=== PATIENT | female | born 1975 | race Caucasian/White ===

== ENCOUNTER 2017-06-24 09:09 | Observation (INO) | payer OTHER ==
[~2017-06-24] VITALS: Ht 172.7 cm; Wt 81.3 kg
[~2017-06-24 09:09] MED LIST: ADDE15TA PO; GELFOAM SIZE 100 ONE; GENTAMICIN SULFATE 80 MG/2 ML VIAL ONE; HYDR-3366 PO; L-MECAP2 PO; LAMI200T PO; LORA-475 PO; PROP10TA6 PO; THROMBIN (TOPICAL) 5,000 UNIT VIAL ONE; TRAZ1TAB45 PO; ceFAZolin 2 GM PREMIX 50 ML ONE; methylPREDNISolone ACETATE 40 MG/ML VIAL ONE
[2017-06-24] MEDS ORDERED: VANCOMYCIN HCL 1000 MG ON-CALL/NS 250 ML IV SCH ×2 (10:00)
[2017-06-24] MEDS ORDERED: SODIUM CHLOR 0.9% 1000 ML INJ 1,000 ML IV SCH (10:00)
[2017-06-24] MEDS ORDERED: METOPROLOL TARTRATE 25 MG TAB ONE (10:04)
[2017-06-24] MEDS ORDERED: LACTATED RINGER'S 1000 ML IV PRN (10:15)
[2017-06-24] MEDS ORDERED: CHLORHEXIDINE GLUCONATE 2 % 1 PACK (2 CLOTHS) TOPICAL PRN (10:15)
[2017-06-24] MEDS ORDERED: POVIDONE IODINE 5% (ANTISEPSIS KIT) 4 APPLICATIONS EACH NARE PRN (10:15)
[2017-06-24] MEDS ORDERED: INSULIN HUMAN REGULAR 1,000 UNITS/10 ML VIAL SQ PRN (10:15)
[2017-06-24] MEDS ORDERED: SODIUM CHLORID 0.9% 500 ML IV PRN (10:15)
[2017-06-24] MEDS ORDERED: METOPROLOL TARTRATE 25 MG TAB PO PRN (10:15)
[2017-06-24] MEDS ORDERED: SUMA6INJ17 SQ (10:31)
[2017-06-24] MEDS ORDERED: APREPITANT 40 MG CAP ONE (11:33)
[2017-06-24] MEDS ORDERED: MIDAZOLAM HCL 2 MG/2 ML VIAL ONE (11:38)
[2017-06-24] MEDS ORDERED: FAMOTIDINE 20 MG/2 ML VIAL ONE (11:38)
[2017-06-24] MEDS ORDERED: KETAMINE HCL 500 MG/5 ML VIAL ONE (13:07)
[2017-06-24] MEDS ORDERED: HYDROmorphone HCL PF 2 MG/ML VIAL ONE (13:07)
[2017-06-24] MEDS ORDERED: ACETAMINOPHEN 1000 MG/100 ML 0 ML IV ONE (13:07)
[2017-06-24] MEDS ORDERED: ACETAMINOPHEN 1000 MG/100 ML 100 ML IV ONE (13:23)
[2017-06-24] MEDS ORDERED: PHENYLEPH/NS 1000 MCG/10 ML SYR IV ONE (13:43)
[2017-06-24] MEDS ORDERED: GLYCOPYRROLATE 0.2 MG/ML VIAL IV ONE (13:43)
[2017-06-24] MEDS ORDERED: DEXAMETHASONE SOD PHOS 4 MG/ML VIAL IV ONE (13:43)
[2017-06-24] MEDS ORDERED: ONDANSETRON HCL 4 MG/2 ML VIAL IV PUSH ONE (13:43)
[2017-06-24] MEDS ORDERED: ROCURONIUM INJ 50 MG/5 ML SYRINGE IV PUSH ONE (13:43)
[2017-06-24] MEDS ORDERED: LIDOCAINE HCL 1% PF 5 ML AMPULE OTHER ONE (13:43)
[2017-06-24] MEDS ORDERED: NEOSTIGMINE 3 MG/3 ML SYR IV ONE (13:43)
[2017-06-24] MEDS ORDERED: KETOROLAC TROMETHAMINE 60 MG/2 ML (IM) VIAL IM ONE (13:43)
[2017-06-24] MEDS ORDERED: PROPOFOL 200 MG/20 ML AMP IV ONE (13:43)
[2017-06-24] MEDS ORDERED: MIDAZOLAM HCL 2 MG/2 ML VIAL IV ONE (13:43)
[2017-06-24] MEDS ORDERED: LACTATED RINGER'S 1000 ML INJ 1,000 ML IV ONE (13:43)
[2017-06-24] MEDS ORDERED: DO NOT ADM ANY ANTICOAGULANT DRUGS PRN (15:53)
[2017-06-24] MEDS ORDERED: *diphenhydrAMINE HCL 50 MG/ML VIAL PERIprocedural Use ONLY ONE (15:53)
[2017-06-24] MEDS ORDERED: *PROMETHAZINE 25 MG/ML VIAL PERIprocedural use ONLY ONE (16:01)
[2017-06-24] MEDS ORDERED: *MEPERIDINE 25 MG INJ VIAL PERIprocedural Use ONLY ONE (16:01)
--- NOTE | 2017-06-24 16:10 | RADRPT ---
EXAM DATE/TIME: 06/24/2017 14:13 [place] COMPARISON: FLUOROSCOPY PORTABLE UP TO 1HR, June 24, 2017, 0:00. INDICATIONS : L5-S1 Laminectomy. MEDICAL HISTORY : Hypertension. Osteoarthritis. SURGICAL HISTORY : Hysterectomy. section. ENCOUNTER: Initial ACUITY: 1 day PAIN SCORE: Non-responsive. LOCATION: Lumbar spine. FINDINGS: Single lateral view of the lumbar spine demonstrate the operative field to be at the L5-S1 level. CONCLUSION: 1. Operative field at the L5/S1 level. Moe Fiore MD on June 24, 2017 at 16:08 Board Certified Radiologist. This report was verified electronically.
[2017-06-24] MEDS ORDERED: HYDR-3366 PO (16:14)
[2017-06-24] MEDS ORDERED: HYDROmorphone HCL PF 1 MG/ML VIAL IV PUSH PRN (16:15)
[2017-06-24] MEDS ORDERED: ACETAMINOPHEN/HYDROcodone 325 MG/10 MG TAB PO PRN ×2 (16:15)
[2017-06-24] MEDS ORDERED: ACETAMINOPHEN 325 MG TAB PO PRN (16:15)
[2017-06-24] MEDS ORDERED: SODIUM CHLORIDE 0.9% FLUSH 5 ML FLUSH IVF PRN (16:15)
[2017-06-24] MEDS ORDERED: LORazepam 2 MG TAB PO PRN (16:15)
--- NOTE | 2017-06-24 16:20 | PD.OP ---
Operative Report Date of Surgery: Jun 24, 2017 Preoperative Diagnosis: L5-S1 disk herniation Postoperative Diagnosis: L5-S1 disk herniation Procedure: Right L5-S1 hemilaminectomy and microdiscectomy Anesthesia: general Surgeon: Edouard Wagner Deliverer Pharmacy(s): Mihaela Fowler Operation and Findings: INDICATIONS FOR THE SURGICAL PROCEDURE Ms Watson is a 41 year-old female who presented with intractable mechanical back pain and clinical evidence of right S1 lower extremity radiculopathy. She was found to have a disk herniation and extrusion significant stenosis with significant mass effect on the neural structures which correlated with the clinical symptoms. She failed maximum nonsurgical management including multiple modalities of conservative treatment as well as pain management interventions by an interventional pain specialist. A surgical decompression were indicated as a last resort. The [id number] details of the procedure, indications, alternatives, risks and potential complications were fully discussed with the patient. The patient fully understood. All the questions were answered. No guarantees were given. The patient voiced requesting the procedure and signed informed consents. He was offered the alternative of delaying the procedure and continuing with nonsurgical management. DETAILS OF THE SURGICAL PROCEDURE After the induction of general anesthesia, endotracheal intubation was performed. A Short catheter, bilateral JOSSELINE hose and sequential compression devices were placed and kept throughout the procedure. The patient was positioned prone on a Mohinder table over a Anshu frame. All pressure points were carefully padded with eggcrate mattress. The eyes were tapped shut after ointment was applied by the anesthesiologist to prevent corneal abrasion. A Katarina hugger was placed over the exposed lower body to maintain control of the core body temperature. The lower lumbar region was prepped and draped in the usual sterile fashion. A spinal needle was placed for localization and an x- ray performed with a C-arm. A skin incision was made in the midline over the spinous processes L5-S1 with a #10 blade. Small subcutaneous bleeders were controlled with a bipolar and the dissection was carried out through the lumbar fascia exposing the spinous processes. A subperiosteal dissection was performed with a Barclay elevator and a Bovie over the right L5-S1 spinous process lamina and facets. A microdiscectomy self-retaining retractor was placed on the incision and an x- ray was obtained with an instrument placed underneath the lamina. At this point in the procedure the operating microscope was draped in the usual sterile fashion and brought to the field. The rest of the surgical procedure was performed using microsurgical dissection technique with exception of the closure. Once the level was confirmed, a decompressive laminectomy was performed at L5- S1 on the right side, using the TPS drill with an AM-8 drill bit. A medial facetectomy was performed and the superior free border of the ligamentum flavum was dissected with a ligament dissector and removed with a thin footplate 2 mm Kerrison The medial facetectomy allowed me to expose the left S1 nerve root, which was identified and followed towards its exit in the foramen. Epidural veins located laterally to the dural sac were coagulated with a bipolar and incised with microscissors. Gentle medial retraction of the dural sac allowed inspection of the disc space. The patient had a disc herniation, causing mass effect over the exiting nerve root. The annulus fibrosus of the disc was coagulated with the bipolar and incised with an 11 blade. The extruded disc was carefully dissected from the surrounding tissue and removed with pituitary forceps. Then, a microdiscectomy was carried out in the standard fashion using straight and up-biting pituitary forceps. A good decompression of the dural sac and nerve root was achieved. The exit of the nerve root was inspected for residual disc fragments and hemostasis was secured with the bipolar. The incision was irrigated with a large amount of saline solution. A Valsalva maneuver failed to show any cerebrospinal fluid leak or bleeding. The decompression was assessed again and found to be satisfactory. 4m of Depomedrol was left over the epidural space. The incision was then closed in layers. The fascia was closed with 0 Vicryl sutures in an interrupted fashion. The superficial fascia was closed with 0 Vicryl sutures. The fascia was infiltrated with 0.5% Marcaine with epinephrine 1:100,000 dilution. The subcutaneous tissue was irrigated then closed with 0 Vicryl and 3-0 Vicryl. The skin was closed with 4-0 running subcuticular Vicryl. Dermabond was applied to the skin. A sterile dressing was applied. At the end of the procedure, the sponge, needle and instrument counts were all correct. Estimated blood loss was less than 50 cc. No blood transfusion was given. No intraoperative complications occurred. The patient received prophylactic antibiotics. The patient was then extubated and transferred to the recovery room in stable condition. Edouard Wagner MD Jun 24, 2017 16:20
[2017-06-24] MEDS ORDERED: *morphine SULFATE 8 MG/ML PERIprocedure ONLY ONE ×3 (16:26→16:40)
[2017-06-24] MEDS ORDERED: KETOROLAC TROMETHAMINE 30 MG/ML (IVP) VIAL ONE (16:32)
[2017-06-24] MEDS ORDERED: *HYDROmorphone PF 1 MG VIAL PERIprocedural Use ONLY ONE ×2 (16:46→17:21)
[2017-06-24] MEDS: NS + KCL 20 MEQ INJ 1,000 ML IV SCH (17:25)
[2017-06-24] MEDS: ACETAMINOPHEN/HYDROcodone 325 MG/10 MG TAB PO PRN ×2 (18:33→23:37)
[2017-06-24 20:30] VITALS: BP 122/81; PULSE 96; RESP 17; TEMP 97.2; O2SAT 94
[2017-06-24] MEDS ORDERED: traZODone HCL 50 MG TAB PO SCH (21:00)
[2017-06-24] MEDS ORDERED: [UNRECOGNIZED DRUG - OTHER] PO SCH (21:00)
[2017-06-24] MEDS ORDERED: NON-FORMULARY DRUG (Trazodone 150 MG) PO SCH (21:00)
[2017-06-24] MEDS ORDERED: [UNRECOGNIZED DRUG - OTHER] PO SCH (21:00)
[2017-06-24] MEDS: PROPRANOLOL HCL 10 MG TAB PO SCH (21:00)
[2017-06-24] MEDS ORDERED: SODIUM CHLORIDE 0.9% FLUSH 5 ML FLUSH IVF SCH (21:00)
[2017-06-24] MEDS ORDERED: lamoTRIgine 100 MG TAB PO SCH (21:00)
[2017-06-24] MEDS: DOCUSATE SODIUM 100 MG CAP PO SCH (21:05)
[2017-06-24] MEDS: ceFAZolin 2 GM PREMIX 50 ML IV SCH (21:05)
[2017-06-24] MEDS: HYDROmorphone HCL PF 2 MG/ML VIAL IV PUSH PRN (21:09)
[2017-06-24] MEDS: diphenhydrAMINE HCL 25 MG CAP PO PRN (21:30)
[2017-06-24] MEDS: KETOROLAC TROMETHAMINE 60 MG/2 ML (IM) VIAL IM SCH (23:24)
[2017-06-24] MEDS ORDERED: ONDANSETRON HCL 4 MG/2 ML VIAL IV PRN (23:45)
[2017-06-24] MEDS ORDERED: ONDANSETRON HCL 4 MG/2 ML VIAL IV PUSH SCH (23:45)
[2017-06-25 00:03] VITALS: BP 140/92; PULSE 90; RESP 17; TEMP 98.6; O2SAT 94
[2017-06-25] MEDS: HYDROmorphone HCL PF 2 MG/ML VIAL IV PUSH PRN ×2 (00:47→05:01)
[2017-06-25] MEDS: NS + KCL 20 MEQ INJ 1,000 ML IV SCH (02:54)
[2017-06-25 04:00] VITALS: BP 115/77; PULSE 79; RESP 20; TEMP 97.6; O2SAT 96
[2017-06-25] MEDS: diphenhydrAMINE HCL 25 MG CAP PO PRN (05:00)
[2017-06-25] MEDS: KETOROLAC TROMETHAMINE 60 MG/2 ML (IM) VIAL IM SCH ×2 (05:00→11:00)
[2017-06-25] MEDS: ceFAZolin 2 GM PREMIX 50 ML IV SCH (05:01)
[2017-06-25] MEDS ORDERED: DEXTROAMPHETAMINE/AMPHETAMINE 5 MG TAB PO SCH (07:00)
[2017-06-25 08:10] VITALS: BP 123/69; PULSE 76; RESP 20; TEMP 97.4; O2SAT 96
[2017-06-25] MEDS ORDERED: PANTOPRAZOLE SOD 40 MG DELAYED RELEASE TAB PO SCH (09:00)
[2017-06-25] MEDS: PROPRANOLOL HCL 10 MG TAB PO SCH (09:05)
[2017-06-25] MEDS: DOCUSATE SODIUM 100 MG CAP PO SCH (09:06)
[2017-06-25] MEDS: ACETAMINOPHEN/HYDROcodone 325 MG/10 MG TAB PO PRN (09:07)
[2017-06-25] MEDS ORDERED: LORazepam 2 MG TAB PO PRN (09:45)
[2017-06-25 12:15] VITALS: BP 110/66; PULSE 77; RESP 20; TEMP 97.5; O2SAT 97
--- NOTE | 2017-06-25 14:12 | HHI.DCPOC ---
Discharge Care Plan Diagnosis: (1) S/P lumbar laminectomy Goals to Promote Your Health * To prevent worsening of your condition and complications * To maintain your health at the optimal level Directions to Meet Your Goals Take your medications as prescribed Follow your dietary instruction Follow activity as directed Keep your appointments as scheduled Take your immunizations and boosters as scheduled If your symptoms worsen call your PCP, if no PCP go to Urgent Care Center or Emergency Room Smoking is Dangerous to Your Health. Avoid second hand smoke Call the 24-hour hour crisis hotline for domestic abuse at Romana Argueta Jun 25, 2017 14:12
--- NOTE | 2017-06-25 14:12 | HHI.DS ---
Discharge Summary Admission Date Jun 24, 2017 at 16:10 Discharge Date: Jun 25, 2017 Admitting Diagnosis s/p laminectomy with microdiscectomy (1) S/P lumbar laminectomy ICD Code: Z98.890 - Other specified postprocedural states Brief History Ms Puckett is a 41 year-old female who presented with intractable mechanical back pain and clinical evidence of right S1 lower extremity radiculopathy. She was found to have a disk herniation and extrusion significant stenosis with significant mass effect on the neural structures which correlated with the clinical symptoms. She failed maximum nonsurgical management including multiple modalities of conservative treatment as well as pain management interventions by an interventional pain specialist. A surgical decompression were indicated as a last resort. Imaging Last Impressions Lumbar Spine X-Ray 06/24/17 0000 Signed Impressions: Service Date/Time: Saturday, June 24, 2017 14:13 - CONCLUSION: 1. Operative field at the L5/S1 level. Moe Fiore MD Hospital Course Ms. Puckett underwent a right L5-S1 hemilaminectomy and microdiscectomy on Jun 24, 2017 for L5-S1 disk herniation. Her surgery went well without complications. Wound care and activity restrictions were discussed. She was discharged home in stable conditions. Pt Condition on Discharge: Stable Discharge Disposition: Discharge Home Discharge Instructions DIET: Follow Instructions for: As Tolerated, No Restrictions ACTIVITIES You can perform: Weight Bearing As Zackery ADDITIONAL Activity Instructio: Avoid strenuous activities, heavy lifting, overhead activities, repetitive bending, twisting, pushing, pulling or any activities which might result in stress over the spine. Avoid situtation that will put at risk for falls. Use assistive device as needed for walking. Wear lumbar brace when out of bed. New Medications: Commode 3-in-1 (Commode 3-in-1) 1 Mis Mis EA .ROUTE DIRECTED, #1 0 Refills Walker with Front Wheels (Walker with Front Wheels) 1 Mis Mis EA .ROUTE DIRECTED, #1 0 Refills Continued Medications: Amphetamine-Dextroamphetamine (Adderall) 15 Mg Tab 15 MG PO BID@07,13 for Hyperactivity Control, #60 TAB 0 Refills take at 7 am and 1 pm. Hydrocodone-Acetaminophen ([place]) 10-325 Mg Tab 1 TAB PO Q4H PRN for PAIN, #90 TAB 0 Refills (This prescription has been renewed ) p-Txsnyltayygd-Augcw (Deplin) 15 Mg Cap 15 MG PO HS Lamotrigine (Lamictal) 200 Mg Tab 200 MG PO HS for Control Seizures, #60 TAB 0 Refills Lorazepam (Ativan) 2 Mg Tab 2 MG PO DAILY PRN for ANXIETY AND/OR AGITATION, TAB 0 Refills Propranolol (Propranolol) 10 Mg Tab 10 MG PO Q12HR, #60 TAB 0 Refills Sumatriptan Inj (Sumatriptan Inj) 6 Mg/0.5 Ml Inj 6 MG SQ, SYRINGE 0 Refills May repeat dose in 1 hour if needed. Trazodone (Trazodone) 150 Mg Tablet 150 MG PO HS for Control Depression, #30 TAB 0 Refills Romana Argueta Jun 25, 2017 14:12
[2017-06-25] MEDS ORDERED: COMMODE 3-IN-11 MIS (14:16)
[2017-06-25] MEDS ORDERED: WALKER WHEELS/F1 MIS (14:16)
--- NOTE | 2017-06-25 14:17 | HHI.FF ---
Face to Face Verification Diagnosis: (1) S/P lumbar laminectomy Physical Therapy Order: Improve ambulation, Strength and gait training (as tolerated) Home Health Nursing Order: Medical education Signs/symptoms of disease process Wound care and dressing changes Nursing assessment with vital signs I have seen patient Praveena Puckett on 06/25/17. My clinical findings support the need for the requested home health care services because: Ltd mobility - disease progression Deconditioned w/ increased weakness I certify that my clinical findings support that this patient is homebound because: Post-op weakness Unsteady gait/balance Romana Argueta Jun 25, 2017 14:17
[2017-06-25] MEDS ORDERED: [UNRECOGNIZED DRUG - OTHER] PO SCH (21:00)
[2017-07-15] MEDS ORDERED: HYDR-3533 PO (14:23)
== END 2017-06-25 15:28 | disposition home or self-care (01) ==
LOC: HSDC 09:09 → HSDI 16:10 → N05B 17:46
PROVIDERS: ADMIT Neurological Surgery; ATTEND Neurological Surgery
DX: M51.27 Other intervertebral disc displacement, lumbosacral region (principal); M54.10 Radiculopathy, site unspecified; I10 Essential (primary) hypertension
CPT/HCPCS: 00630; 63030; 72020; 76000; 96365; 96366; 96375; 96376; 97162; G0378; G8987; G8988; J0131; J0690; J1030; J1100; J1170; J1200; J1580; J1885; J2175; J2250; J2270; J2370; J2405; J2550; J2710; J3010; J3370; J3480; J7050; J7120; J8501; L0627